=== PATIENT | female | born 1935 | race African-American/Black ===

== ENCOUNTER 2018-07-01 18:29 | Emergency (ER) | payer OTHER ==
[~2018-07-01] VITALS: Ht 165.1 cm; Wt 54.5 kg
[~2018-07-01 18:29] MED LIST: AMLO10TA4 PO; DOCU-138 PO; ENAL20TA PO; FERR-43 PO; HYDR25TA PO
[2018-07-01] MEDS ORDERED: KETOROLAC 30MG/ML VIAL IV STA (18:52)
[2018-07-01 19:40] LABS: HEMATOCRIT. 23.6 % (36.0-48.0); HEMOGLOBIN. 8.2 g/dL (12.0-16.0); MEAN CORPUSCULAR HEMOGLOBIN 27.7 pg (28.0-32.0); MEAN CORPUSCULAR VOLUME 79.5 fL (81.0-99.0); MEAN PLATELET VOLUME 8.9 fl (7.4-10.4); PLATELET 107 x1000/uL (130-400); RED BLOOD CELL COUNT 2.97 mill/uL (4.2-5.4); RED CELL DISTRIBUTION WIDTH 19.4 % (11.6-14.6)
[2018-07-01 19:44] LABS: CHLORIDE 103 mEq/L (98-107)
[2018-07-01 19:46] LABS: INR 1.1; PROTHROMBIN TIME 11.5 sec (9.1-11.1)
[2018-07-01 20:54] LABS: PLATELET ESTIMATE DECREASED
[2018-07-01 21:00] VITALS: BP 138/62
== END 2018-07-01 22:15 | disposition home or self-care (01) ==
LOC: ER 20:01
DX: M25.551 Pain in right hip (principal); I10 Essential (primary) hypertension; D57.1 Sickle-cell disease without crisis; M19.90 Unspecified osteoarthritis, unspecified site; R79.1 Abnormal coagulation profile
CPT/HCPCS: 36415; 71045; 73502; 80053; 85025; 85044; 85610; 93005; 96374; 99285; J1885